=== PATIENT | female | born 1985 | race African-American/Black ===

== ENCOUNTER 2019-04-25 21:15 | Emergency (ER) | payer OTHER ==
[~2019-04-25] VITALS: Ht 172.7 cm; Wt 90.7 kg
[2019-04-25 21:20] VITALS: BP 123/70
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
--- NOTE | 2019-04-25 21:35 | NUR ---
ED Nurse Note: xray at bedside
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
[2019-04-25] MEDS ORDERED: IBUPROFEN600 MG ORAL (21:43)
--- NOTE | 2019-04-25 21:55 | NUR ---
ED Nurse Note: PT DC PER ERMD ORDER. PT IS AOX4, VSSPT VERBALIZED DECREASED PAIN POST MEDICATION ADMINSITRATION. PT WAS GIVEN DC AND RX INSTRUCTINS AND VERBALIZED UNDERSSTANDING. PT ID BAND REMOVED.
--- NOTE | 2019-04-26 10:41 | Diagnostic Imaging Report ---
Indication: Chest pain. Trauma Comparison: None A single view chest radiograph was obtained. Findings: Cardiomediastinal appearance is within normal limits for age. The lungs are clear. Pulmonary vascularity is appropriate. The diaphragmatic contour is smooth and costophrenic angles are sharp. No pleural effusions are identified. The bones are unremarkable. Impression: No acute findings
== END 2019-04-25 21:55 | disposition home or self-care (01) ==
LOC: EMR 21:54
DX: S29.011A Strain of muscle and tendon of front wall of thorax, initial encounter (principal); V43.52XA Car driver injured in collision with other type car in traffic accident, initial encounter; Y92.410 Unspecified street and highway as the place of occurrence of the external cause
CPT/HCPCS: 71045; 99283